=== PATIENT | male | born 1960 | race Caucasian/White ===

== ENCOUNTER → 2017-07-23 | Outpatient (CLI) | payer BC ==
--- NOTE | 2017-07-23 15:52 | CT ---
EXAMINATION TYPE: CT chest w con DATE OF EXAM: 07/23/2017 COMPARISON: NONE HISTORY: Lung nodule CT DLP: 514.5 mGycm, Automated exposure control for dose reduction was used. CONTRAST: Performed injected with 100 mL of Isovue 300. Contrast extravasation was documented. There is little contrast within the system. TECHNIQUE: Axial images were obtained at 5 mm thick sections. Reconstructed images are reviewed on [email or web address] computer in the coronal plane. FINDINGS: Portion of the thyroid visualized is normal. No suspicious lung nodules or focal infiltrates are present. No enlarged mediastinal or hilar adenopathy is evident. The ascending aorta diameter at the level o f the main pulmonary artery is 3.7 cm. The main pulmonary artery diameter at the bifurcation is 2.[address] sections are obtained through the upper abdomen. Abdomen is essentially unremarkable. Postsurgical changes are within the thoracic and thoracolumbar junction. IMPRESSIONS: 1. No suspicious changes to suggest pulmonary nodule is evident.
== END | disposition home or self-care (01) ==
LOC: RADCTMAIN 08:56
PROVIDERS: ATTEND Family Medicine
DX: R91.1 Solitary pulmonary nodule (principal)
CPT/HCPCS: 71260; Q9967

== ENCOUNTER → 2019-11-15 | Outpatient (CLI) | payer BC ==
--- NOTE | 2019-11-15 17:34 | ECHOF ---
Referral Reason:R06.09 Dyspenia MEASUREMENTS -------- HEIGHT: 180.3 cm WEIGHT: 106.6 kg BP: 124/80 RVIDd: 2.6 cm (< 3.3) IVSd: 1.2 cm (0.6 - 1.1) LVIDd: 4.1 cm (3.9 - 5.3) LVPWd: 1.0 cm (0.6 - 1.1) IVSs: 1.6 cm LVIDs: 2.4 cm LVPWs: 1.5 cm LA Diam: 2.8 cm (2.7 - 3.8) Ao Diam: 3.4 cm (2.0 - 3.7) AV Cusp: 2.0 cm (1.5 - 2.6) MV EXCURSION: 10.325 mm (> 18.000) MV EF SLOPE: 64 mm/s (70 - 150) EPSS: 0.5 cm MV E Adán: 1.05 m/s MV DecT: 188 ms MV A Adán: 0.95 m/s MV E/A Ratio: 1.10 RAP: 5.00 mmHg RVSP: 30.05 mmHg FINDINGS -------- Sinus rhythm. This was a technically good study. The left ventricular size is normal. There is borderline concentric left ventricular hypertrophy. Overall left ventricular systolic function is normal with, an EF between 60 - 65 %. The right ventricle is normal in size. The left atrial size is normal. The right atrium is normal in size. Interatrial and interventricular septum intact. The aortic valve is trileaflet and appears structurally normal. The mitral valve is normal. Mild tricuspid regurgitation present. Right ventricular systolic pressure is normal at < 35 mmHg. Trace/mild (physiologic) pulmonic regurgitation. The aortic root size is normal. Normal inferior vena cava with normal inspiratory collapse consistent with estimated right atrial pre ssure of 5 mmHg. There is no pericardial effusion. CONCLUSIONS -------- 1. The left ventricular size is normal. 2. There is borderline concentric left ventricular hypertrophy. 3. Overall left ventricular systolic function is normal with, an EF between 60 - 65 %. 4. Mild tricuspid regurgitation present. 5. Trace/mild (physiologic) pulmonic regurgitation. 6. There is no pericardial effusion. [facility]FF [employer]ER[employer]Y RN: Yara Fletcher RD
== END | disposition home or self-care (01) ==
LOC: RADECHMAIN 11:13
PROVIDERS: ATTEND Nurse Practitioner Family
DX: I07.1 Rheumatic tricuspid insufficiency (principal); I37.1 Nonrheumatic pulmonary valve insufficiency
CPT/HCPCS: 93306

== ENCOUNTER 2023-12-01 10:58 | Day surgery (SDC) | payer BC ==
[2023-12-01] MEDS: IV FLUID CONTINUATION 1,000 ML IV ONE (11:31)
[2023-12-01] MEDS ORDERED: LACTATED RINGERS 1,000 ML IV SCH (11:34)
[2023-12-01] MEDS ORDERED: LIDOCAINE 1% (10MG/ML) FOR IV START INTRADERMA PRN (11:34)
[2023-12-01 11:41] VITALS: TEMP 97.7
[2023-12-01] MEDS ORDERED: PROPOFOL 10 MG/ML 20 ML VIAL IV ONE (12:02)
--- NOTE | 2023-12-01 12:15 | P.PCN ---
Date of Procedure: 12/01/23 Procedure(s) Performed: BRIEF HISTORY: Patient is a 63-year-old pleasant white male scheduled for an elective colonoscopy as a part of evaluation by history of colon polyps. Last colonoscopy was 5 ago and was noted to have an adenoma. PROCEDURE PERFORMED: Colonoscopy. PREOPERATIVE DIAGNOSIS: History of colon polyps. IV sedation per Anesthesia. PROCEDURE: After informed consent was obtained, the patient, was brought into the endoscopy unit. IV sedation was administered by Anesthesia under continuous monitoring. Digital rectal examination was normal. Initially the Olympus CF-160 flexible video colonoscope was then inserted in the rectum, gradually advanced into the cecum without any difficulty. Careful examination was performed as the scope was gradually being withdrawn. Ileocecal valve and the appendiceal orifice were visualized and appeared normal. Prep was excellent. Mucosa of the cecum, ascending colon, transverse colon, descending colon, sigmoid colon, and rectum appeared normal. Scattered sigmoid diverticulosis.Retroflexion was performed in the rectum and no lesions were seen. The patient tolerated the procedure well. IMPRESSION: Normal-appearing colon from rectum to cecum with no evidence of colorectal neoplasia Scattered sigmoid diverticulosis. RECOMMENDATIONS: Findings of this examination were discussed with the patient as well as his family. He was advised to have repeat colonoscopy in 10 years.
[2023-12-01 12:47] VITALS: BP 119/72; PULSE 70; RESP 20
== END 2023-12-01 13:06 | disposition home or self-care (01) ==
LOC: ORWHC2ENDO 10:58
PROVIDERS: ATTEND Internal Medicine Gastroenterology
CPT/HCPCS: 45378